=== PATIENT | male | born 1990 | race Caucasian/White ===

== ENCOUNTER 2023-05-12 22:52 | Emergency (ER) | payer OTHER, SELFPAY ==
[2023-05-12 23:23] VITALS: BP 145/97
[2023-05-13 02:15] VITALS: BP 128/88
[2023-05-13 02:20] VITALS: BMI 19.4
--- NOTE | 2023-05-13 02:34 | ED.GENMED ---
History of Present Illness
General
Chief Complaint: Breathing Problem
Source: patient
Exam Limitations: none
Time Seen by Provider: 05/13/23 01:50
Nursing documentation reviewed up to this point in time: agreed with
Travel History
Have you had any contact with someone who has COVID-19?: No
Do you have any symptoms of coronavirus? Fever > 100 degrees, chills, cough, shortness of breath, sore throat, loss of taste or smell, muscle aches, or headache?: No
History of Present Illness
History of Present Illness:
33-year-old male with past medical history of opioid use on Suboxone who presents to the emergency room for evaluation of chest pain. Patient reports onset of symptoms when he woke up last Sunday�total duration of symptoms 8 days so far. He says
he has constant pain for that period time in the right chest. He says it is a sharp pain that is worse when he moves and worse when he takes a deep breath. He has been taking oxycodone which he had leftover at home to relieve his pain. He has not
tried Tylenol or Motrin yet. He denies any associated shortness of breath. He denies any coughing, fevers. No edema in his legs. No GI symptoms. He denies any other complaints. He does note that he started working out at the gym 2 weeks ago
and he thinks he may have tweaked his chest during a lift. He also admits to regular vaping.
Past History
Past History
ED Past Medical History: None
ED Past Surgical History: None
Review of Systems
Review of Systems
All Other Systems: ROS reviewed and negative except as documented in HPI and ROS
Constitutional: Denies fever or chills
EENT: Denies sore throat or runny nose
Respiratory: Denies cough or trouble breathing
Cardiac: Reports chest pain; Denies diaphoresis or palpitations
ABD/GI: Denies abdominal pain, nausea, vomiting or diarrhea
: Denies flank pain
Musculoskeletal: Denies edema, neck pain or back pain
Neurological: Denies headache, weakness or numbness
Phy Exam
Physical Exam
Physical Exam:
General: Awake, alert, oriented x3; no acute distress
Head: Normocephalic, atraumatic
Eyes: Conjunctiva normal, sclera anicteric
Throat: Airway intact, handling secretions
Neck: Trachea midline, supple without meningismus
Lungs: Clear to auscultation bilaterally, no wheezing, rales, rhonchi
Heart: Regular rate and rhythm, no murmurs, gallops, or rubs; he has right lateral chest wall tenderness mid axillary line ribs 6 and 7, no crepitus
Abd: Soft, non distended, nontender
Neuro: Cranial nerves grossly intact, speech fluid
Skin: no rash
Extremities: No edema in extremities, equal pulses in all extremities
Scores
Heart Failure Risk
Heart Failure Risk Score: Not Applicable
Heart Score for Chest Pain Patients
STEMI patient?: No
History: Slightly or Non-Suspicious
ECG: Normal
Age: </= 45 years
Risk Factors: No Risk Factors
Troponin: </= Normal Limit
Heart Score for Chest Pain Patients: 0
Heart Score Risk: 2.5% MACE over next 6 weeks
PE Wells Score
Symptoms of DVT: No
No alternative diagnosis better explains the illness: No
Tachycardia with pulse > 100: No
Immobilization (>=3 days) or surgery within previous 4 weeks: No
Prior history of DVT or pulmonary embolism: No
Presence of hemoptysis: No
Presence of malignancy: No
Pulmonary Embolism Risk Score: 0
Probability of PE: Pt is low risk
Withdrawal Assessment of Alcohol
Withdrawal Assessment Completed?: Not applicable
Course
Orders/Labs/Results
Orders:
Orders
05/12/23 23:26
Electrocardiogram (*1) Urgent
Reason for Study: Shortness of Breath
EKG- Treatment ONCE
05/13/23 00:00
CR Chest - 2 Views Urgent
Reason For Exam: sob
05/13/23 02:38
Complete Blood Count/With Diff Urgent
Comprehensive Metabolic Panel Urgent
D-Dimer Urgent
Lipase Urgent
Troponin I Urgent
05/13/23 02:43
Ketorolac [Toradol] 15 mg IV NOW STA
Abnormal Lab Results
05/13/23
02:38
RBC 4.54 L 10^6/uL
(4.70-6.10)
Hct 38.6 L %
(39.0-52.0)
Lymphocytes % 19.0 L %
(20.5-51.1)
BUN 25 H mg/dl
(9-20)
Creatinine 0.6 L mg/dL
(0.7-1.3)
Glucose 107 H mg/dl
(70-99)
05/13/23 02:38
05/13/23 02:38
Vital Signs
Initial and Last Documented VS:
Initial Vital Signs
Temp Pulse Resp BP Pulse Ox
37.0 C 103 16 145/97 99
05/12/23 23:23 05/12/23 23:23 05/12/23 23:23 05/12/23 23:23 05/12/23 23:23
Last Documented Vital Signs
Temp Pulse Resp BP Pulse Ox
37.0 C 71 16 128/88 97
05/12/23 23:23 05/13/23 02:15 05/13/23 02:15 05/13/23 02:15 05/13/23 02:15
MDM/Problems Addressed
Differential Diagnosis Includes:
Pleurisy, costochondritis, pneumothorax, pericarditis, pneumonia less likely without cough or fever, ACS and PE much less likely based on clinical history
MDM/Problems Addressed:
33-year-old male presents for evaluation of constant pleuritic chest pain for the past 8 days; he thinks he may have injured at the gym. Was hypertensive and tachycardic in triage, vital signs normalized by my assessment. Exam as above. Suspect
likely costochondritis versus pleurisy related to vaping. We did do an EKG which showed no acutely concerning abnormalities. Sent for chest x-ray reviewed by me which showed no pneumothorax. Will check basic labs, D-dimer, troponin in abundance
of caution, treat with Toradol, reassess after the above.
Labs reviewed: CBC unremarkable, CMP no clinically significant abnormalities. Troponin undetectable. D-dimer negative. Chest x-ray reviewed by me shows no pneumothorax as above and no other acute pathology. Patient feeling better. Vitals
normal. Exam reassuring. Suspect likely costochondritis. Will discharge advised NSAIDs for the next week will follow-up with PCP. Spoke about return precautions all questions answered.
Acute Exacerbation and/or Progression of Chronic Illness:
Acutely hypertensive resolved on intervention continue to monitor but no additional antihypertensive treatment for now
Acute Exacerbation and/or Progression of Chronic Illness: HTN
*Radiology
Radiology exam reviewed: preliminary read by ED provider
*Pulse Oximetry
Patient hypoxic: no
*EKG
Interpreted by ED Provider?: Yes
Heart Rate: 93
Rate: normal
Rhythm: sinus
[place]: normal axis
Interval: normal interval
QRS Pattern: normal QRS
Ischemia: no ischemia
*Critical Care Note
Total Time (30-74mins, 75-104mins- exclusive of procedures): Not Applicable
Data Reviewed
Source: patient
ED Attending Note
-
Portions of this chart may have been created with voice recognition software.� Occasional wrong word or��sound alike� substitutions may have occurred due to the inherent limitations of voice recognition software.
Discharge Plan
Departure
Patient with high blood pressure during this ER visit?: Yes
Discharge Problem:
Chest pain
Instructions: Chest Pain (DC), Costochondritis (DC)
Prescriptions:
New
ibuprofen 600 mg tablet
600 mg PO Q8H PRN (Reason: Pain) 7 Days Qty: 20 0RF
No Action
buprenorphine-naloxone [Suboxone] 4-1 mg Film
1 film BUCCAL Q24H
Patient Comments:
pt does not take this when taking oxycodone which is not prescribed to him
oxycodone 30 mg Tablet, Oral Only
30 - 60 mg PO BID PRN (Reason: lung pain)
Patient Comments:
this is not prescribed to pt, has been taking it for pain in lung
Referrals:
Benedict Foote MD [Family Provider] - Call in 1-3 days for appt
Activity Restrictions/Additional Instructions:
Thank you for visiting the Emergency Department at [facility].
1. Please schedule a follow up appointment as directed. Call first thing tomorrow morning to make an appointment.
2. If indicated, please take your medications as instructed and indicated on discharge paperwork.
3. If any of your symptoms do not improve, or persist, or become more severe within 6-12 hours, please return to the emergency department for further care.
4. Please return to the emergency department if you develop a headache, neck pain/stiffness, fever greater than 100.4F, chest pain, shortness of breath, persistent nausea, vomiting, slurred speech, difficulty walking, numbness/tingling, weakness,
signs of infection or any other symptoms that are worrisome to you.
Please call [phone] if you have any questions.
Interventions
Interventions:
*Risk Screen - Suicide Last Done: 05/13/23 02:20
*General Assessment Last Done: 05/12/23 23:23
*Neglect/Abuse Screening Last Done: 05/13/23 02:20
ED- Fall Risk Assessment Last Done: 05/13/23 02:51
*ED COVID-19 Vaccine History Last Done: 05/12/23 23:23
ED- Pulmonary Assessment Last Done: 05/13/23 02:51
Discharge Date and Time
Print Language: JAPANESE
[2023-05-13] MEDS: TORADOL 15 MG IV (02:48)
[2023-05-13 02:56] LABS: % Basophils 0.5 % (0-2); % Eosinophils 3.6 % (0-6); % Immature Granulocytes 0.3 % (0-0.5); % Monocytes 7.1 % (1.7-9.3); % Neutrophils 69.5 % (42.2-75.2); Absolute Eosinophils 0.3 10^3/uL (0-0.7); Absolute Lymphocytes 1.6 10^3/uL (1.2-3.4); Absolute Monocytes 0.6 10^3/uL (0.1-0.6); Hematocrit 38.6 % (39.0-52.0); Hemoglobin 13.2 g/dL (13.0-18.0); Mean Corp Hgb Conc. 34.2 g/dL (33.0-37.0); Mean Corpuscular Hgb 29.1 pg (27.0-31.0); Mean Platelet Volume 9.2 fL (7.4-10.4); Nucleated Red Blood Cells % 0 % (-); Platelet Count 397 10^3/uL (130-400); Red Blood Cell Count 4.54 10^6/uL (4.70-6.10); Red Cell Dist. Width 13.1 % (11.5-14.5); White Blood Cell Count 8.6 10^3/uL (4.8-10.8)
[2023-05-13 03:12] LABS: ALT (SGPT) 17 U/L (0-50); AST (SGOT) 25 U/L (17-59); Albumin 4.6 g/dl (3.5-5.0); Alkaline Phosphatase 71 U/L (38-126); Blood Urea Nitrogen 25 mg/dl (9-20); Calcium 9.7 mg/dl (8.4-10.2); Carbon Dioxide 29 mmol/L (22-30); Chloride 100 mmol/L (98-107); Estimated Creatinine Clearance > 125 ml/min; Glucose 107 mg/dl (70-99); Lipase 23 U/L (23-300); Potassium 4.2 mmol/L (3.5-5.1); Sodium 136 mmol/L (135-145); Total Bilirubin 0.3 mg/dl (0.2-1.3); Total Protein 7.8 g/dl (6.3-8.2); eGFR > 60.00
[2023-05-13 03:22] LABS: Troponin I < 0.012 ng/ml
[2023-05-13 03:46] LABS: D-Dimer < 0.27 ug/mlFEU (0.00-0.50)
[2023-05-13 03:58] VITALS: BP 133/99
== END 2023-05-13 04:01 | disposition home or self-care (01) ==
LOC: EMR 22:52
PROVIDERS: EMERGENCY PHYSICIAN Emergency Medicine; FAMILY PHYSICIAN Family Medicine
DX: R07.89 Other chest pain (principal); F11.90 Opioid use, unspecified, uncomplicated; I10 Essential (primary) hypertension
CPT/HCPCS: 99283; 96374; 71046; 80053; 83690; 84484; 85025; 85379; 93005

== ENCOUNTER 2023-10-13 10:47 | Emergency (ER) | payer OTHER, SELFPAY ==
[2023-10-13 10:49] VITALS: BMI 20.5
[2023-10-13 10:54] LABS: Glucose - Point of Care 121 mg/dl (70-99)
--- NOTE | 2023-10-13 10:54 | ED.GENMED ---
History of Present Illness
General
Chief Complaint: Overdose Unintentional
Time Seen by Provider: 10/13/23 10:48
History of Present Illness
History of Present Illness:
33-year-old male with history of polysubstance abuse arrives to the emergency department via EMS due to reported overdose. The patient admits to Percocet and heroin use today as well as crack cocaine and meth use. Per family's report the patient
has been using 'anything he can get his hands on'. He received IV Narcan by EMS with improvement of mental status. On arrival he is somnolent but arouses easily, alert and oriented fully.
Past History
Past History
ED Past Medical History: None
ED Past Surgical History: None
Review of Systems
Review of Systems
Allergies reviewed?: Yes
All Other Systems: ROS reviewed and negative except as documented in HPI and ROS
Phy Exam
Physical Exam
Physical Exam:
GEN: Well appearing, NAD, WDWN
HEENT: Oral mucosa moist, no scleral icterus, pupils 3 to 4 mm and reactive bilaterally
Cardiac: Regular rate and rhythm, no murmur
Lung: No respiratory distress, no tachypnea, lungs clear to auscultation bilaterally
MSK: No gross deformity or injuries
Skin: Good color, no pallor or jaundice, no rashes
Neuro: Somnolent but arouses easily, oriented fully
Psych: Calm, cooperative
Course
Orders/Labs/Results
Orders:
Orders
10/13/23 10:52
Bedside Glucose- Treatment ONCE
0.9% Sodium Chloride 1000 ml [Nss] 1,000 ml IV BOLUS
Abnormal Lab Results
10/13/23
10:53
POC Glucose 121 H mg/dl
(70-99)
Vital Signs
Initial and Last Documented VS:
Initial Vital Signs
Pulse Resp Pulse Ox
89 21 99
10/13/23 10:54 10/13/23 10:54 10/13/23 10:54
Last Documented Vital Signs
Temp Pulse Resp BP Pulse Ox
98.1 F 71 12 89/46 95
10/13/23 13:00 10/13/23 13:15 10/13/23 13:15 10/13/23 13:00 10/13/23 13:15
MDM/Problems Addressed
MDM/Problems Addressed:
Stable with no further need for naloxone administration in the emergency department. Initially he had excepted resources for drug abuse however upon waking up fully he states 'I am already in a program' and declined further interview or resources.
Discharged in stable condition, given Narcan at discharge for home use
*Critical Care Note
Total Time (30-74mins, 75-104mins- exclusive of procedures): Not Applicable
Update Note
Update Note:
1234: Pt reassessed. Sleeping, maintaining airway, no hypoxia. BP somewhat low, still receiving IV fluids.
ED Attending Note
-
Portions of this chart may have been created with voice recognition software.� Occasional wrong word or��sound alike� substitutions may have occurred due to the inherent limitations of voice recognition software.
Discharge Plan
Departure
Patient Disposition: Home (Routine Discharge)
Date of Disposition: 10/13/23
Time of Disposition: 13:51
Patient with high blood pressure during this ER visit?: No
Discharge Problem:
Polysubstance abuse
Instructions: Opioid Overdose (DC)
Prescriptions:
No Action
buprenorphine-naloxone [Suboxone] 4-1 mg Film
1 film BUCCAL Q24H
Patient Comments:
pt does not take this when taking oxycodone which is not prescribed to him
oxycodone 30 mg Tablet, Oral Only
30 - 60 mg PO BID PRN (Reason: lung pain)
Patient Comments:
this is not prescribed to pt, has been taking it for pain in lung
ibuprofen 600 mg tablet
600 mg PO Q8H PRN (Reason: Pain) 7 Days Qty: 20 0RF
Referrals:
UNKNOWN - PT NOT,INTERVIEWE [Family Provider] -
Interventions
Interventions:
*Risk Screen - Suicide Last Done: 10/13/23 10:53
*General Assessment Last Done: 10/13/23 10:53
*Neglect/Abuse Screening Last Done: 10/13/23 10:53
ED- Fall Risk Assessment Last Done: 10/13/23 10:52
*ED COVID-19 Vaccine History Last Done: 10/13/23 10:53
*Nursing Disposition Last Done: 10/13/23 13:56
ED- Cardiac Assessment Last Done: 10/13/23 10:55
ED- Neurological Assessment Last Done: 10/13/23 10:55
ED-Psychological Assessment Last Done: 10/13/23 10:55
ED- Pulmonary Assessment Last Done: 10/13/23 10:55
Discharge Date and Time
Discharge Date/Time: 10/13/23 13:58
Print Language: GAMBIAN
[2023-10-13 10:55] VITALS: BP 113/85
[2023-10-13] MEDS: NSS 1000 IV (10:59)
[2023-10-13 11:00] VITALS: BP 109/65
[2023-10-13 12:00] VITALS: BP 91/49
[2023-10-13 12:07] VITALS: BP 91/49
[2023-10-13 13:00] VITALS: BP 89/46
== END 2023-10-13 13:58 | disposition home or self-care (01) ==
LOC: EMR 10:47
PROVIDERS: EMERGENCY PHYSICIAN Emergency Medicine
DX: F19.10 Other psychoactive substance abuse, uncomplicated (principal); F11.90 Opioid use, unspecified, uncomplicated; F15.90 Other stimulant use, unspecified, uncomplicated; R40.0 Somnolence
CPT/HCPCS: 99284; 96360; 82962

== ENCOUNTER 2024-02-15 20:34 | Emergency (ER) | payer OTHER, SELFPAY ==
--- NOTE | 2024-02-15 20:37 | ED.GENMED ---
ED Provider Triage
-
Patient seen by provider in Triage?: Seen in Triage
Rapid Assessment
Patient presenting with spouse for change in mental status, fell asleep in shower, fatigue, acting strange. 16 days sober. denies use today. does take methadone daily. no physical concerns at this time but states feels funny. Bedside glucose done.
Patient appears pale but communicative. Pupils pinpoint. Normal vitals
History of Present Illness
General
Chief Complaint: Change Level of Consciousness
History of Present Illness
History of Present Illness:
.
Past History
Past History
ED Past Medical History: None
ED Past Surgical History: None
Phy Exam
Physical Exam
Physical Exam:
.
Course
Orders/Labs/Results
Orders:
Orders
02/15/24 20:39
Bedside Glucose- Treatment ONCE
Abnormal Lab Results
02/15/24
20:41
POC Glucose 137 H mg/dl
(70-99)
Vital Signs
Initial and Last Documented VS:
Initial Vital Signs
Temp Pulse Resp BP Pulse Ox
97.5 F 67 20 93/66 99
02/15/24 20:39 02/15/24 20:39 02/15/24 20:39 02/15/24 20:39 02/15/24 20:39
Last Documented Vital Signs
Temp Pulse Resp BP Pulse Ox
97.5 F 67 20 93/66 99
02/15/24 20:39 02/15/24 20:39 02/15/24 20:39 02/15/24 20:39 02/15/24 20:39
*Critical Care Note
Total Time (30-74mins, 75-104mins- exclusive of procedures): Not Applicable
ED Attending Note
-
Portions of this chart may have been created with voice recognition software.� Occasional wrong word or��sound alike� substitutions may have occurred due to the inherent limitations of voice recognition software.
Discharge Plan
Departure
Patient Disposition: Left Without Treatment
Prescriptions:
No Action
buprenorphine-naloxone [Suboxone] 4-1 mg Film
1 film BUCCAL Q24H
Patient Comments:
pt does not take this when taking oxycodone which is not prescribed to him
oxycodone 30 mg Tablet, Oral Only
30 - 60 mg PO BID PRN (Reason: lung pain)
Patient Comments:
this is not prescribed to pt, has been taking it for pain in lung
ibuprofen 600 mg tablet
600 mg PO Q8H PRN (Reason: Pain) 7 Days Qty: 20 0RF
Interventions
Interventions:
*General Assessment Last Done: 02/15/24 20:39
Discharge Date and Time
Print Language: FRENCH
[2024-02-15 20:39] VITALS: BP 93/66
[2024-02-15 20:43] LABS: Glucose - Point of Care 137 mg/dl (70-99)
== END 2024-02-15 20:58 | disposition left against medical advice (07) ==
LOC: EMR 20:34
DX: R41.82 Altered mental status, unspecified (principal); Z53.21 Procedure and treatment not carried out due to patient leaving prior to being seen by health care provider
CPT/HCPCS: 99281; 82962